=== PATIENT | male | born 1980 | race Caucasian/White ===

== ENCOUNTER 2021-05-13 22:22 | Emergency (ER) | payer OTHER, MEDICAID, SELFPAY ==
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
[2021-05-13 22:23] VITALS: BP 127/82; PULSE 81; RESP 21; TEMP 37; O2SAT 92
[2021-05-13 23:05] LABS: Basophils Absolute Auto 0.2 K/mm3 (0.0-0.1); Basophils Percent Auto 1.3 % (0.2-1.2); Eosinophils Absolute Auto 0.4 K/mm3 (0-0.3); Eosinophils Percent Auto 3.4 % (0-4.4); Hematocrit 42.7 % (42.0-52.0); Hemoglobin 14.4 g/dL (14.0-18.0); Immature Granulocyte Absolute 0.07 K/mm3 (0.00-0.031); Immature Granulocyte Percent A 0.6 % (0-0.5); Lymphocytes Absolute Auto 3.37 K/mm3 (0.9-3.2); Lymphocytes Percent Auto 26.9 % (18.3-44.2); Mean Corpuscular HGB Conc 33.7 g/dl (32-36); Mean Corpuscular Hemoglobin 30.8 pg (26-34); Mean Corpuscular Volume 91.4 fl (80-100); Mean Platelet Volume 10.7 fl (7.4-10.4); Monocytes Absolute Auto 1.1 K/mm3 (0.1-0.6); Monocytes Percent Auto 8.4 % (2.6-8.5); Neutrophils Absolute Auto 7.5 K/mm3 (1.3-6.7); Neutrophils Percent Auto 59.4 % (45.5-73.1); Platelet Count Result 285 k/mm3 (150-375); Red Blood Count 4.67 M/mm3 (4.6-6.20); Red Cell Distribution Width 12.4 % (11.5-14.5); White Blood Count 12.5 K/mm3 (4.5-10.0)
[2021-05-13 23:14] LABS: Alanine Aminotransferase 39 U/L (4-50); Alkaline Phosphatase 93 U/L (38-126); Anion Gap 7 mmol/L (8-16); Aspartate Amino Transferase 37 U/L (17-59); Bilirubin,Total 0.3 mg/dL (0.2-1.3); Blood Urea Nitrogen 14 mg/dL (9-20); Calcium 8.7 mg/dL (8.4-10.2); Carbon Dioxide 27 mmol/L (22-30); Chloride 104 mmol/L (98-107); Estimated CRCL calculation 83 ml/min; Estimated Glomerular Filt Rate > 60; Glucose 124 mg/dL (65-110); Potassium 3.4 mmol/L (3.4-5.0); Sodium 138 mmol/L (137-145)
[2021-05-13 23:18] LABS: INR 0.9; Prothrombin Time 11.6 Seconds (11.1-14.7)
[2021-05-13 23:19] LABS: Partial Thromboplastin Time 21.8 SECONDS (22.3-36.8)
[2021-05-13 23:24] LABS: Ethanol < 10 mg/dL (<10)
[2021-05-14] VITALS: BP 138/75; PULSE 81; RESP 16; O2SAT 98
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
[2021-05-14 01:49] VITALS: BP 129/68; PULSE 97; RESP 18; O2SAT 98
--- NOTE | 2021-05-25 15:12 | PC.NURSE ---
LATE ENTRY This note is being entered to document information to the patient's record. The following information was omitted on [05/14/21], by [Dustin SMITH]. Left arm volar splint applied per order from [facility].
== END 2021-05-14 02:02 | disposition home or self-care (01) ==
PROVIDERS: Emergency Provider Emergency Medicine
DX: S52.502A Unspecified fracture of the lower end of left radius, initial encounter for closed fracture (principal); S09.90XA Unspecified injury of head, initial encounter; V43.52XA Car driver injured in collision with other type car in traffic accident, initial encounter
CPT/HCPCS: 29125; 36415; 70450; 71260; 72125; 73080; 73090; 74177; 80053; 80307; 85025; 85610; 85730; 99284; Q9967